=== PATIENT | female | born 1945 ===

== ENCOUNTER 2017-03-30 23:50 | Emergency (ER) | payer MEDICARE, MEDICAID ==
[2017-03-30 23:57] VITALS: BMI 33.5
[2017-03-30 23:58] VITALS: TEMP 98.1
[2017-03-31 00:19] VITALS: RESP 18; O2SAT 99
[2017-03-31 00:34] LABS: ADD MANUAL DIFF? NO
[2017-03-31 00:39] LABS: BASO # 0.03 K/mm3 (0.0-2.0); BASO % 0.4 % (0.0-3.0); EOS # 0.2 (0.0-0.7); EOS % 2.5 % (1.5-5.0); GRAN # 3.13 (1.4-6.5); GRAN % 43.8 % (50.0-68.0); HEMATOCRIT 36.8 % (36.0-48.0); LYMPH # 3.1 (1.2-3.4); LYMPH % 43.4 % (22.0-35.0); MEAN CELL VOLUME 81.8 fL (80.0-105.0); MEAN CORPUSCULAR HEMOGLOBIN 27.8 pg (25.0-35.0); MEAN PLATELET VOLUME 8.5 fl (7.0-11.0); MONO # 0.7 (0.1-0.6); MONO % 9.9 % (1.0-6.0); PLATELET COUNT 237 10^3/uL (120.0-450.0); RED CELL DISTRIBUTION WIDTH 13.7 % (11.5-14.5); WHITE BLOOD COUNT 7.2 10^3/ul (4.5-11.0)
--- NOTE | 2017-03-31 00:47 | ED PDOC ---
Arrival/HPI - General Chief Complaint: Chest Pain Time Seen by Provider: 03/31/17 00:06 Historian: Other (patient's daughter) - History of Present Illness Narrative History of Present Illness (Text): 03/31/17 00:48 A 71 year old female, whose past medical history includes diabetes and cardiac stent (in 2004), presents to the emergency department complaining of on and off shortness of breath and chest pain for the past 3 days. Patient's daughter reports patient's chest pain lasts a few minutes. Daughter also reports patient has a productive cough and notes green phlegm. Denies fever or any other complaints at this time. PMD: Dr. Wilson ([place]) Time/Duration: Other (3 days) Symptom Onset: Sudden Symptom Course: Unchanged Activities at Onset: Rest Context: Home Past Medical History - Provider Review Nursing Documentation Reviewed: Yes - Travel History If Yes, travel location?: [place] last week - Cardiac Hx Hypertension: Yes - Pulmonary Hx Respiratory Disorders: No Hx Asthma: Yes Hx Bronchitis: Yes - Neurological Hx Neurological Disorder: No - HEENT Hx HEENT Disorder: No - Renal Hx Renal Disorder: No - Endocrine/Metabolic Hx Endocrine Disorders: Yes Hx Diabetes Mellitus Type 2: Yes - Hematological/Oncological Hx Blood Disorders: No - Integumentary Hx Dermatological Disorder: No - Musculoskeletal/Rheumatological Hx Musculoskeletal Disorders: No - Gastrointestinal Hx Gastrointestinal Disorders: No - Genitourinary/Gynecological Hx Genitourinary Disorders: No - Psychiatric Hx Psychophysiologic Disorder: No Hx Substance Use: No - Anesthesia Hx Anesthesia: No Family/Social History - Physician Review Nursing Documentation Reviewed: Yes Family/Social History: No Known Family HX Smoking Status: Never Smoked Hx Alcohol Use: No Hx Substance Use: No Allergies/Home Meds Allergies/Adverse Reactions: Allergies No Known Allergies Allergy (Verified 03/30/17 23:57) Review of Systems - Physician Review All systems were reviewed & negative as marked: Yes - Review of Systems Constitutional: absent: Fevers Respiratory: SOB, Cough Cardiovascular: Chest Pain Physical Exam Vital Signs Reviewed: Yes Vital Signs Temp Pulse Resp BP Pulse Ox 03/31/17 02:04 57 L 18 150/70 99 03/31/17 00:19 62 18 99 03/30/17 23:58 98.1 F 76 15 161/91 H 97 Temperature: Afebrile Blood Pressure: Hypertensive Pulse: Regular Respiratory Rate: Normal Appearance: Positive for: Well-Appearing, Non-Toxic, Comfortable Pain Distress: None Mental Status: Positive for: Alert and Oriented X 3 - Systems Exam Head: Present: Atraumatic, Normocephalic Pupils: Present: PERRL Extroacular Muscles: Present: EOMI Conjunctiva: Present: Normal Mouth: Present: Moist Mucous Membranes Neck: Present: Normal Range of Motion Respiratory/Chest: Present: Clear to Auscultation, Good Air Exchange, Other ( tenderness anterior chest wall sternum). No: Respiratory Distress, Accessory Muscle Use Cardiovascular: Present: Regular Rate and Rhythm, Normal S1, S2. No: Murmurs Abdomen: Present: Normal Bowel Sounds. No: Tenderness, Distention, Peritoneal Signs Back: Present: Normal Inspection Upper Extremity: Present: Normal Inspection. No: Cyanosis, Edema Lower Extremity: Present: Normal Inspection. No: Edema Neurological: Present: GCS=15, CN II-XII Intact, Speech Normal Skin: Present: Warm, Dry, Normal Color. No: Rashes Psychiatric: Present: Alert, Oriented x 3, Normal Insight, Normal Concentration Medical Decision Making ED Course and Treatment: 03/31/17 00:44 EKG: Ordered, reviewed, and independently interpreted the EKG. Rate : 66 BPM Rhythm : NSR Interpretation : Normal axis, Normal intervals, No acute ischemia Comparison : No previous EKG for comparison. Chest xray: questionable left lower lobe opacity, interpreted by me. - Lab Interpretations Lab Results: 03/31/17 00:30 03/31/17 00:30 Lab Results 03/31/17 00:30: Sodium 139, Potassium 4.9, Chloride 104, Carbon Dioxide 25, Anion Gap 15, BUN 16, Creatinine 0.7, Est GFR ( Amer) > 60, Est GFR (Non- Af Amer) > 60, Random Glucose 103, Calcium 9.5, Total Bilirubin 0.6, AST 36, ALT 40, Alkaline Phosphatase 46, Troponin I 0.02, NT-Pro-B Natriuret Pep 66.5, Total Protein 8.0, Albumin 4.2, Globulin 3.8, Albumin/Globulin Ratio 1.1, Lipase 312 H 03/31/17 00:30: WBC 7.2, RBC 4.50, Hgb 12.5, Hct 36.8, MCV 81.8, MCH 27.8, MCHC 34.0, RDW 13.7, Plt Count 237, MPV 8.5, Gran % 43.8 L, Lymph % (Auto) 43.4 H, [place] % (Auto) 9.9 H, Eos % (Auto) 2.5, Baso % (Auto) 0.4, Gran # 3.13, Lymph # 3.1, [place] # 0.7 H, Eos # 0.2, Baso # 0.03 I have reviewed the lab results: Yes - RAD Interpretation Radiology Orders: 03/31/17 00:22 CHEST TWO VIEWS (PA/LAT) [RAD] Stat - EKG Interpretation Interpreted by ED Physician: Yes Type: 12 lead EKG - Medication Orders Current Medication Orders: Discontinued Medications Ketorolac Tromethamine (Toradol) 10 mg IVP STAT STA Stop: 03/31/17 00:23 Last Admin: 03/31/17 00:53 Dose: 10 mg - Scribe Statement The provider has reviewed the documentation as recorded by the Ame Knox Provider Scribe Attestation: All medical record entries made by the Ame were at my direction and personally dictated by me. I have reviewed the chart and agree that the record accurately reflects my personal performance of the history, physical exam, medical decision making, and the department course for this patient. I have also personally directed, reviewed, and agree with the discharge instructions and disposition. Disposition/Present on Arrival - Present on Arrival History of DVT/PE: No History of Uncontrolled Diabetes: No Urinary Catheter: No History of Decub. Ulcer: No History Surgical Site Infection Following: None - Disposition Diagnosis: Pneumonia Disposition Time: 02:12 Patient Problems: Current Active Problems Problem Status Onset Pneumonia Acute Condition: STABLE Discharge Instructions (ExitCare): Community Acquired Pneumonia (ED) Referrals: Lou Degroot MD [Primary Care Provider] - Follow up with primary
[2017-03-31 00:48] LABS: ALB/GLOB RATIO 1.1 (1.1-1.8); ALKALINE PHOSPHATASE 46 U/L (38-133); ALT/SGPT 40 U/L (7-56); AST/SGOT 36 U/L (15-39); BILIRUBIN,TOTAL 0.6 mg/dL (0.2-1.3); BLOOD UREA NITROGEN 16 mg/dL (7-21); CALCIUM 9.5 mg/dL (8.4-10.5); CARBON DIOXIDE 25 mmol/L (21-33); CHLORIDE 104 mmol/L (98-107); GFR AFRICAN-AMERICAN > 60; GLUCOSE,RANDOM 103 mg/dL (70-110); LIPASE 312 U/L (23-300); POTASSIUM 4.9 mmol/L (3.6-5.0); SODIUM 139 mmol/L (132-148)
[2017-03-31 01:01] LABS: TROPONIN I 0.02 ng/mL
[2017-03-31 02:06] VITALS: BP 150/70; PULSE 57
[2017-03-31] MEDS ORDERED: Amoxicillin-Clav 875-125 mg Tab PO STA (02:12)
--- NOTE | 2017-03-31 08:48 | RAD ---
HISTORY: sob cough COMPARISON: None available. TECHNIQUE: Chest PA and lateral FINDINGS: The patient's chin obscures evaluation of the lung apices. Examination limited by overpenetrated technique. LUNGS: No focal consolidation. Please note that chest x-ray has limited sensitivity for the detection of pulmonary masses. PLEURA: No significant pleural effusion identified. No definite pneumothorax . CARDIOVASCULAR: Heart size appears within normal limits. Atherosclerotic calcifications of the aorta. OSSEOUS STRUCTURES: Degenerative changes of the spine. Osseous demineralization. VISUALIZED UPPER ABDOMEN: Unremarkable. OTHER FINDINGS: None. IMPRESSION: No active disease. Limitations as above.
--- NOTE | 2017-03-31 15:55 | CARD ---
APPROVED REPORT EKG Measurement Heart [id number] CA [id number] <Conclusion> Normal sinus rhythm Normal ECG
== END 2017-03-31 02:33 | disposition home or self-care (01) ==
LOC: ED 23:50 → MERGE 23:50 → ED 03-31 02:33
DX: J18.9 Pneumonia, unspecified organism (principal); I10 Essential (primary) hypertension; Z95.5 Presence of coronary angioplasty implant and graft
CPT/HCPCS: 71020; 80053; 83690; 83880; 84484; 85025; 93005; 96374; 99284; J1885